=== PATIENT | male | born 1980 | race Caucasian/White ===

== ENCOUNTER 2022-08-06 15:25 | Emergency (ER) | payer BC, SELFPAY ==
[2022-08-06 15:36] VITALS: BP 144/80; PULSE 103; RESP 18; TEMP 39.2; O2SAT 97
--- NOTE | 2022-08-06 16:08 | ED.URI ---
HPI - URI/Sore Throat General Chief Complaint: Upper Respiratory Infection Stated Complaint: Headache,Body Aches Source: patient Mode of arrival: ambulatory History of Present Illness HPI Narrative: This is a 42-year-old male who presented to our urgent care with complaints of a cough with yellow sputum, headache, nausea vomiting and sore throat that started on Wednesday. Patient did have a temperature of 102.5? patient did refuse any Tylenol decreases fever. The patient denies SOB, CP, palpitation, extremity numbness, lightheadedness, dizziness, constipation, diarrhea, and chills. Related Data Allergies Allergy/AdvReac Type Severity Reaction Status Date / Time No Known Allergies Allergy Verified 08/06/22 15:40 Review of Systems Review of Systems: A 14 organ system Review of Systems was performed and pertinent positives included in the HPI, otherwise remaining ROS is negative. Exam Narrative: GENERAL: This is a well-nourished, well-developed patient, in no apparent distress. HEAD: normocephalic, atraumatic. EYES: PERRL. Sclera clear/white. Vision is grossly intact. EARS: External ears normal, auditory canals clear and without drainage, TMs normal without perforation. Hearing grossly intact. NOSE: External nose normal with no obvious nasal discharge, nares without redness, no rhinorrhea. THROAT: Mucous membranes moist, posterior pharynx clear. NECK: Neck supple, non-tender without lymphadenopathy, masses or thyromegaly. CARDIOVASCULAR: Regular rate and rhythm without murmurs, gallops, or rubs. RESPIRATORY: Clear to auscultation. Breath sounds equal bilaterally. No wheezes, rales, or rhonchi. GASTROINTESTINAL: Abdomen soft, non-tender, nondistended. Bowel sounds are active. No hepato-splenomegaly, or palpable masses. No guarding. SKIN: warm, intact with no suspicious lesions or rash, good texture and turgor. NEURO: awake, alert, and oriented to person, place and time. There were no obvious focal neurologic abnormalities. EXTREMITIES: Normal range of motion. No edema. No calf tenderness. Course Course Emergency Course: Patient will discharge home with Tessalon Perles, Flonase, and Zofran and guaifenesin instructed to use [id number] Tylenol for fever and cold and cough medication to relieve the symptoms Level of Care: Express Care Visit Vital Signs Vital signs: Vital Signs Temperature 102.5 F H 08/06/22 15:36 Pulse Rate 103 H 08/06/22 15:36 Respiratory Rate 18 08/06/22 15:36 Blood Pressure 144/80 H 08/06/22 15:36 Pulse Oximetry 97 08/06/22 15:36 Oxygen Delivery Room Air 08/06/22 15:36 Temperature 102.5 F H 08/06/22 15:36 Pulse Rate 103 H 08/06/22 15:36 Respiratory Rate 18 08/06/22 15:36 Blood Pressure 144/80 H 08/06/22 15:36 Pulse Oximetry 97 08/06/22 15:36 Oxygen Delivery Room Air 08/06/22 15:36 MDM - URI/Sore Throat Differential Diagnosis Differential diagnosis: Likely upper respiratory infection, sinusitis, viral infection and influenza Lab Data Labs: Lab Results 08/06/22 Range/Units 16:00 POC SARS CoV-2 Ag Negative (Negative) Discharge Plan Discharge Clinical Impression: Viral infection Patient Disposition: Home, Self-Care Condition: Stable Instructions: Antibiotic Form, Viral Syndrome (ED) Additional Instructions: Take prescribed medication as instructed When do I need to call the doctor? Fever or cough returns or gets worse Chest pain with deep breathing Confusion or sudden dizziness Very bad throwing up or throwing up that does not stop Trouble breathing Passing less urine You are not feeling better in 2 to 3 days or you are feeling worse Use [id number] Tylenol for fever WHEN TO SEEK ER EVALUATION/TREATMENT Severe/persistent shortness of breath or difficulty breathing Elevated, persistent fevers without resolution with fever-reducing medications Chest pain Extreme fatigue/lethargy Complications of pre-existing
== END 2022-08-06 16:10 | disposition home or self-care (01) ==
PROVIDERS: Emergency Provider Nurse Practitioner; PCP Nurse Practitioner Family
DX: B34.9 Viral infection, unspecified (principal); Z20.822 Contact with and (suspected) exposure to COVID-19
CPT/HCPCS: 87426; 99213; C9803; G0463

== ENCOUNTER 2024-09-25 13:36 | Emergency (ER) | payer OTHER, SELFPAY ==
[2024-09-25 13:45] VITALS: BP 155/101; PULSE 98; RESP 18; TEMP 36.6; O2SAT 98
--- OUTSIDE RECORDS SUMMARY | 2024-09-25 13:48 | XMS_ITS | Referral Summary ---
Author Organization [facility] [employer] Address [address] [place] [address] Care Team Providers Care Information Technology Security Manager Name Role Phone Unavailable Primary Care Provider Unavailabl e Source Comments [facility] [employer],non-owned Affiliates and Associated Physician Practices is amultiple site organization consisting of ambulatory clinics and hospital sitesin [place], [place], [place] and [place]. This disclosure is being madepursuant to the Care Everywhere program and may not contain all information available regarding this patient. Last updated 18.[facility] [employer] Allergies No known active allergies Medications Be aware that medications may not be up to date on this document. Always verify current medications with the patient. No known medications Social History Tobacco Use Types Packs/Day Years Used Date Smoking Tobacco: Every Day Smokeless Tobacco: Never Sex and Gender Information Value Date Recorded Sex Assigned at Not on file Gender Identity Not on file Sexual Orientation Not on file Last Filed Vital Signs Vital Sign Reading Time Taken Comments Blood Pressure 120/80 03/30/2018 9:06 AM CDT Pulse 82 03/30/2018 9:06 AM CDT Temperature 36.8 C (98.2 F) 03/30/2018 9:06 AM CDT Respiratory Rate 16 03/30/2018 9:06 AM CDT Oxygen Saturation 98% 03/30/2018 9:06 AM CDT Inhaled Oxygen Concentration - - Weight 117.9 kg (260 lb) 03/30/2018 9:06 AM CDT Height 172.7 cm (5' 8 ) 03/30/2018 9:06 AM CDT Body Mass Index 39.53 03/30/2018 9:06 AM CDT Plan of Treatment Not on file
--- OUTSIDE RECORDS SUMMARY | 2024-09-25 13:48 | XMS_ITS | Referral Summary ---
Author Organization [facility] [address] Address [address] [place] [id number] Care Team Providers Care Coordinator Of Evaluation Name Role Phone Tanya Vivas NP Primary Care Provider [phone] Encounters Date Type Department Care Team Description 08/31/2024 Telephone [facility] Medical [facility] Primary Care at [address] [address] Tanya Vivas NP R/S AWV with Tanya Vivas 08/15/2024 Orders Only [address] [address] Yuliya Branham MA Hematuria, unspecified type (Primary Dx) 08/14/2024 4:21 PM IMAGE SCIENTIST - 08/14/2024 11:59 PM IMAGE SCIENTIST Hospital Encounter [address] [address] Hematuria, unspecified type Discharge Disposition: Discharge to home or self care 08/14/2024 Orders Only [facility] Primary Care at [address] [address] Matty Colón MD 08/14/2024 1:30 PM IMAGE SCIENTIST Lab [facility] Outpatient Lab at [address] [address] Hyperlipidemia (Primary Dx); Hypertension; DELIA (obstructive sleep apnea) 08/01/2024 4:20 PM IMAGE SCIENTIST - 08/01/2024 11:59 PM IMAGE SCIENTIST Hospital Encounter [address] [id number] Hematuria, unspecified type Discharge Disposition: Discharge to home or self care 08/01/2024 4:00 PM IMAGE SCIENTIST Office Visit [facility] Primary Care at [address] [phone] Tanya Vivas NP Diverticulitis (Primary Dx); Hematuria, unspecified type 07/28/2024 8:57 PM IMAGE SCIENTIST - 07/29/2024 12:48 AM IMAGE SCIENTIST Emergency [facility] Emergency Department [address] [place] [address] Sammie Walls MD Armstrong, Rachel Elizabeth, MD Diverticulitis (Primary Dx); Hematuria, unspecified type Discharge Disposition: Discharge to home or self care 07/28/2024 Nurse Triage [facility] Primary Care at [address] [address] Tanya Vivas NP 07/06/2024 Telephone [facility] Primary Care at [address] [address] Seema Gonzalez MA Test Results (labs) 07/06/2024 Orders Only [facility] Primary Care at [address] [phone] Tanya Vivas NP Decreased renal function (Primary Dx) 07/05/2024 4:08 PM IMAGE SCIENTIST - 07/05/2024 11:59 PM IMAGE SCIENTIST Hospital Encounter [address] [address] Primary hypertension; Impaired fasting glucose Discharge Disposition: Discharge to home or self care 07/05/2024 4:15 PM IMAGE SCIENTIST Lab [facility] Outpatient Lab at [address] [address] Class 2 obesity in adult (Primary Dx); Hypertension 07/05/2024 4:00 PM IMAGE SCIENTIST Office Visit [facility] Primary Care at [address] [phone] Tayna Vivas NP Primary hypertension (Primary Dx); Mixed hyperlipidemia; Impaired fasting glucose from Last 3 Months Allergies No known active allergies Medications buPROPion SR (ZYBAN) 150 mg 12 hr tablet Take 1 tablet (150 mg total) by mouth 2 (two) times a day Active losartan (COZAAR) 100 mg tablet Take 1 tablet (100 mg total) by mouth daily 90 tablet 1 06/19/2024 Active fenofibrate (TRIGLIDE) 160 mg tablet Take 1 tablet (160 mg total) by mouth daily 90 tablet 1 06/19/2024 Active Saccharomyces boulardii (FLORASTOR) 250 mg capsule Take 2 capsules (500 mg total) by mouth 2 (two) times a day for 12 days 48 capsule 07/29/2024 Active Active Problems Problem Noted Date Diagnosed Date Hyperlipidemia 06/21/2023 Assessment & Plan (07/05/2024 4:09 PM IMAGE SCIENTIST): Updated labs ordered, continues Fenofibrate. Assessment & Plan (01/03/2024 8:21 AM CDT): Updated labs ordered, continues Fenofibrate. Assessment & Plan (06/21/2023 12:51 PM IMAGE SCIENTIST): Updated labs ordered, continues Fenofibrate. S/P laparoscopic appendectomy 09/07/2022 DELIA (obstructive sleep apnea) 09/07/2022 Assessment & Plan (06/21/2023 12:41 PM IMAGE SCIENTIST): Was unable to tolerate CPAP. Doing ok now with sleep. Migraines 09/07/2022 Assessment & Plan (06/21/2023 12:51 PM IMAGE SCIENTIST): Rarely getting migraines. Will monitor. Hypertension 09/07/2022 Assessment & Plan (07/05/2024 4:09 PM IMAGE SCIENTIST): BP stable overall. Continuing Losartan 100 mg daily. Updated labs ordered. Assessment & Plan (01/03/2024 8:20 AM CDT): BP stable overall. Continuing Losartan 100 mg daily. Assessment & Plan (06/21/2023 12:51 PM IMAGE SCIENTIST): BP ok in office, continuing Losartan 100 mg daily Updated labs ordered Class 2 obesity in adult 09/07/2022 Assessment & Plan (06/21/2023 12:52 PM IMAGE SCIENTIST): Healthy, low carbohydrate lifestyle and exercise for 150min/week recommended Appendicitis 09/06/2022 Immunizations Name Administration Dates Next Due DTP 06/30/1980, 9,1979,04/08 Influenza, Quadrivalent, Jessica l Culture-based MDCK, Preservative Free, Antibiotic Free, Intramuscular 05/30/2023,07/05/2022 Influenza, Unspecified 06/02/2024 MMR 03/21/1993,06/30/1980 OPV 12/26/1983, 0,1979,06/18,1979 Td, adsorbed 03/21/1993,06/30/1984 Social History Tobacco Use Types Packs/Day Years Used Date Smoking Tobacco: Every Day Cigarettes 0.5 15 Tobacco Cessation:Ready to Q uit: Not Asked; Counseling Given: Not Answered PHQ-2 Answer Date Recorded PHQ-2 Total Score (If total score is 3 or more points, staff should administer the PHQ-9) 0 08/01/2024 Personal Safety Answer Date Recorded Have you ever been in or are you currently in a harmful physical or emotional relationship or is someone making you feel afraid or unsafe? Denies 07/28/2024 Sex and Gender Information Value Date Recorded Sex Assigned at Not on file Legal Sex Male 10:45 PM IMAGE SCIENTIST Gender Identity Not on file Sexual Orientation Not on file Last Filed Vital Signs Vital Sign Reading Time Taken Comments Blood Pressure 124/80 08/01/2024 3:54 PM IMAGE SCIENTIST Pulse 87 08/01/2024 3:54 PM IMAGE SCIENTIST Temperature 36.5 C (97.7 F) 08/01/2024 3:54 PM IMAGE SCIENTIST Respiratory Rate 16 07/29/2024 12:30 AM IMAGE SCIENTIST Oxygen Saturation 99% 08/01/2024 3:54 PM IMAGE SCIENTIST Inhaled Oxygen Concentration - - Weight 112.9 kg (249 lb) 08/01/2024 3:54 PM IMAGE SCIENTIST Height 172.7 cm (5' 8 ) 08/01/2024 3:54 PM IMAGE SCIENTIST Body Mass Index 37.86 08/01/2024 3:54 PM IMAGE SCIENTIST Plan of Treatment Not on file Procedures Procedure Name Priority Date/Time Associated Diagnosis Comments URINALYSIS, MICROSCOPIC ONLY Routine 08/14/2024 9:15 PM IMAGE SCIENTIST Hematuria, unspecified type URINALYSIS AND REFLEX TO MICROSCOPIC AND CULTURE Routine 08/14/2024 9:15 PM IMAGE SCIENTIST Hematuria, unspecified type POCT URINALYSIS DIPSTICK Routine 08/01/2024 4:21 PM IMAGE SCIENTIST Hematuria, unspecified type URINE CULTURE Routine 08/01/2024 4:20 PM IMAGE SCIENTIST Hematuria, unspecified type CT ABDOMEN PELVIS WO CONTRAST ED 07/28/2024 10:31 PM IMAGE SCIENTIST URINALYSIS, MICROSCOPIC ONLY STAT 07/28/2024 7:15 PM IMAGE SCIENTIST URINALYSIS AND REFLEX TO MICROSCOPIC AND CULTURE STAT 07/28/2024 7:15 PM IMAGE SCIENTIST EGFR STAT 07/28/2024 5:58 PM IMAGE SCIENTIST DIFFERENTIAL AUTO STAT 07/28/2024 5:5 8 PM IMAGE SCIENTIST LIPASE STAT 07/28/2024 5:58 PM IMAGE SCIENTIST COMPREHENSIVE METABOLIC PANEL STAT 07/28/2024 5:58 PM IMAGE SCIENTIST CBC WITH AUTO DIFFERENTIAL STAT 07/28/2024 5:58 PM IMAGE SCIENTIST EGFR Routine 07/05/2024 4:08 PM IMAGE SCIENTIST Primary hypertension DIFFERENTIAL AUTO Routine 07/05/2024 4:0 8 PM IMAGE SCIENTIST Primary hypertension CBC WITH AUTO DIFFERENTIAL Routine 07/05/2024 4:08 PM IMAGE SCIENTIST Primary hypertension COMPREHENSIVE METABOLIC PANEL Routine 07/05/2024 4:08 PM IMAGE SCIENTIST Primary hypertension HEMOGLOBIN A1C Routine 07/05/2024 4:08 PM IMAGE SCIENTIST Impaired fasting glucose LIPID PANEL Routine 07/05/2024 4:08 PM IMAGE SCIENTIST Primary hypertension THYROID FUNCTION CASCADE Routine 07/05/2024 4:08 PM IMAGE SCIENTIST Primary hypertension HEPATITIS C ANTIBODY Routine 01/03/2024 8:29 AM CDT Encounter for hepatitis C screening test for low risk patient HM COLONOSCOPY Routine 01/30/2023 2:34 PM CDT from Last 3 Months or Most Recently Relevant to Health Maintenance Results * (ABNORMAL) Urinalysis reflex to microscopic and culture Urine, bladder (08/14/2024 9:15 PM IMAGE SCIENTIST) Color, ur Yellow Yellow Clarity, ur Clear Clear [facility] Specific gravity, ur 1.019 1.003 - 1.030 [facility] pH, urine 6.5 [facility] Comment: Interpretive Data U rine pH is affected by diet, medications, systemic acid-base disturbances, and renal tubular function. pH may affect urinary stone formation. For example, urine pH below 6.0 may help reduce the tendency for calcium phosphate stones and pH greater than 6.0 may reduce the tendency for uric acid stone formation. Source: [facility] Current Interpretive Data was last revised on 2017 Protein, ur ql Negative Negative [facility] Glucose, ur ql 1+(A) Negative [facility] Ketones, ur Negative Negative [facility] Bilirubin, ur Negative Negative [facility] Blood, ur Trace(A) Negative [facility] Urobilinogen, ur <2.0 <2.0 mg/dL [facility] Nitrite, ur Negative Negative [facility] Leukocyte esterase, ur Negative Negative [facility] UA reflex comment Reflex to microscopic UA will be performed. [facility] Urine, bladder 08/14/2024 9: 15 PM IMAGE SCIENTIST 08/15/2024 11:42 AM IMAGE SCIENTIST us Tanya Vivas NP LAB MICROBIOLOGY - GENERAL ORDER BRANDIE Final Result PROMISE MADDEN [address] Department [place] [address] * (ABNORMAL) Urinalysis, microscopic only (08/14/2024 9:15 PM IMAGE SCIENTIST) WBC, ur 0-5 0 - 5 /HPF RBC, ur 6-10(A) 0 - 2 /HPF [facility] Mucous, ur Present(A) [facility] Culture Reflex Comment Reflex conditions for urine culture (WBC >10) not met. [facility] Urine, bladder 08/14/2024 9: 15 PM IMAGE SCIENTIST 08/15/2024 11:42 AM IMAGE SCIENTIST us Tanya Vivas NP LAB URINE ORDERABLES Final Resul t Performing Organization Address [facility] Co de Phone Number PROMISE MADDEN [address] Department [place] [address] * (ABNORMAL) POCT urinalysis dipstick (08/01/2024 4:21 PM IMAGE SCIENTIST) Glucose, ur, POC Negative Negative MG/DL Bilirubin, ur, POC Negative Negative, Small, Moderate, Large Ketones, ur, POC Negative Negative Specific [place], POC 1.025 1.003 - 1.030 Blood, ur, POC Moderate(A) Negative pH, ur, POC 5.5 5.0 - 8.0 Protein, ur, POC Negative Negative Urobilinogen, urine, POC 0.2 0.2 - 1.0 mg/dL Nitrite, ur, POC Negative Negative Leukocytes, ur, POC Negative Negative Lot Number [id number] Urine 08/01/2024 4:21 PM IMAGE SCIENTIST us Tanya Vivas NP POINT OF CARE TEST ORDERABLES Fi nal Result * Urine culture Urine, bladder (08/01/2024 4:20 PM IMAGE SCIENTIST) Report Final Report: No growth Comment:Testing performed by : [facility], [address] [facility], [place]., [address] Urine, bladder 08/01/2024 4: 20 PM IMAGE SCIENTIST 08/01/2024 10:08 PM IMAGE SCIENTIST Narrative PROMISE MADDEN - 08/03/2024 7:55 AM IMAGE SCIENTIST Testing performed by [facility] Microbiology Laboratory ([phone]) us Tanya Vivas FLAKO LAB MICROBIOLOGY - GENERAL ORDER BRANDIE Final Result PROMISE MADDEN [address] Department [place] [address] * CT Abdomen Pelvis WO Contrast (07/28/2024 10:31 PM IMAGE SCIENTIST) Anatomical Region Laterality Modality Body N/A Computed Tomogra phy 07/29/2024 9:38 AM IMAGE SCIENTIST Impressions 07/29/2024 9:38 AM IMAGE SCIENTIST Acute, uncomplicated sigmoid diverticulitis. Electronically signed by: Guillermo Keith M.D. Narrative 07/29/2024 9:38 AM IMAGE SCIENTIST EXAMINATION: CT ABDOMEN PELVIS WO CONTRAST HISTORY: Flank pain. TECHNIQUE: Transaxial computed tomographic images of the abdomen and pelvis were obtained without intravenous contrast according to the standard protocol. COMPARISON: None available FINDINGS: The lung bases are clear. There is no pleural effusion. The heart size is normal. Hepatic and splenic size and contour is normal. There is no parenchymal organ abnormality on noncontrast imaging. Left renal cysts are present. There is no biliary or urinary tract dilatation. No focal urinary tract calculus is identified. The small and large bowel are nondilated. There is sigmoid diverticulosis with focal inflammation in the mid sigmoid colon consistent with diverticulitis. There is no extraluminal fluid collection or free air. There is no ascites. There is no acute osseous lesion. Procedure Note Guillermo Keith MD - 07/29/2024 EXAMINATION: CT ABDOMEN PELVIS WO CONTRAST HISTORY: Flank pain. TECHNIQUE: Transaxial computed tomographic images of the abdomen and pelvis were obtained without intravenous contrast according to the standard protocol. COMPARISON: None available FINDINGS: The lung bases are clear. There is no pleural effusion. The heart size is normal. Hepatic and splenic size and contour is normal. There is no parenchymal organ abnormality on noncontrast imaging. Left renal cysts are present. There is no biliary or urinary tract dilatation. No focal urinary tract calculus is identified. The small and large bowel are nondilated. There is sigmoid diverticulosis with focal inflammation in the mid sigmoid colon consistent with diverticulitis. There is no extraluminal fluid collection or free air. There is no ascites. There is no acute osseous lesion. IMPRESSION: Acute, uncomplicated sigmoid diverticulitis. Electronically signed by: Guillermo Keith M.D. Sammie Walls MD IMG CT PROCEDURES Final R esult * (ABNORMAL) Urinalysis reflex to microscopic and culture Urine (07/28/2024 7:15 PM IMAGE SCIENTIST) Color, ur Yellow Yellow Clarity, ur Clear Clear [facility] Specific gravity, ur >1.030(H) 1.003 - 1.030 [facility] pH, urine 6.0 [facility] Comment: Interpretive Data U rine pH is affected by diet, medications, systemic acid-base disturbances, and renal tubular function. pH may affect urinary stone formation. For example, urine pH below 6.0 may help reduce the tendency for calcium phosphate stones and pH greater than 6.0 may reduce the tendency for uric acid stone formation. Source: [employer] Current Interpretive Data was last revised on 2017 Protein, ur ql Trace Negative [facility] Glucose, ur ql 1+(A) Negative [facility] Ketones, ur Negative Negative [facility] Bilirubin, ur Negative Negative [facility] Blood, ur 2+(A) Negative [facility] Urobilinogen, ur 4.0(A) <2.0 mg/dL [facility] Nitrite, ur Negative Negative [facility] Leukocyte esterase, ur Negative Negative [facility] UA reflex comment Reflex to microscopic UA will be performed. [facility] Urine 07/28/2024 7:15 PM IMAGE SCIENTIST 07/28/2024 7:21 PM IMAGE SCIENTIST Sammie Walls MD LAB MICROBIOLOGY - GENERA L ORDERABLES Final Result Performing Organization Address [facility] Co de Phone Number [facility] [address] [facility] [place] [address] * (ABNORMAL) Urinalysis, microscopic only (07/28/2024 7:15 PM IMAGE SCIENTIST) WBC, ur 0-5 0 - 5 /HPF RBC, ur 6-10(A) 0 - 2 /HPF [facility] Epithelial cells, squamous, ur 1-5 0 - 5 /HPF [facility] Mucous, ur Present(A) [facility] Culture Reflex Comment Reflex conditions for urine culture (WBC >10) not met. [facility] Urine 07/28/2024 7:15 PM IMAGE SCIENTIST 07/28/2024 7:21 PM IMAGE SCIENTIST Sammie Walls MD LAB URINE ORDERABLES Katia l Result Performing Organization Address [facility] Co de Phone Number PROMISE [facility] [address] Department [place] [address] * eGFR (07/28/2024 5:58 PM IMAGE SCIENTIST) eGFR 74 >=60 mL/min/1. 73 m2 Comment: Interpretive Data Reference Interval Normal >/= 90 mL/min/1.73m2 Mildly decreased* 60 - 89 mL/min/1.73m2 Mildly to moderately decreased 45 - 59 mL/min/1.73m2 Moderately to severely decreased 30 - 44 mL/min/1.73m2 Severely decreased 15 - 29 mL/min/1.73m2 Kidney Failure < 15 mL/min/1.73m2 *Relative to young adult level Estimated glomerular filtration rate is determined by the 2020 CKD-EPI equation recommended by the National Kidney Foundation (A Unifying Approach to GFR Estimation: Recommendations of the NKF-ASK Task Force on Reassessing the Inclusion of Race in Diagnosing Kidney Disease, JASN 202). The CKD-EPI equation should not be used for patients with unstable renal function and has not been validated in children and those over 70. Current interpretive data was last reviewed 2021. Blood 07/28/2024 5:58 PM IMAGE SCIENTIST 07/28/2024 6:02 PM IMAGE SCIENTIST Sammie Walls MD LAB BLOOD ORDERABLES Katia tafoya Result [facility] [address] [facility]. Department [place] [address] * Differential, auto (07/28/2024 5:58 PM IMAGE SCIENTIST) Neutrophil abs 4.5 1.5 - 6.5 K/cumm Imm gran abs 0.0 0.0 - 0.1 K/cumm [facility] Lymphocyte abs 1.5 0.8 - 3.3 K/cumm [facility] Monocyte abs 0.5 0.2 - 0.8 K/cumm [facility] Eosinophil abs 0.2 0.0 - 0.5 K/cumm [facility] Basophil abs 0.1 0.0 - 0.1 K/cumm [facility] Neutrophil pct 66.1 % [facility] Comment: Interpretive Data Percent cell count reference ranges are not reported, since discordance with absolute values may lead to misinterpretation of CBC data. Current Interpretive Data was last revised on 2017. Imm gran pct 0.3 % [facility] Comment: Interpretive Data Percent cell count reference ranges are not reported, since discordance with absolute values may lead to misinterpretation of CBC data. Current Interpretive Data was last revised on 2017. Lymphocyte pct 22.7 % [facility] Comment: Interpretive Data Percent cell count reference ranges are not reported, since discordance with absolute values may lead to misinterpretation of CBC data. Current Interpretive Data was last revised on 2017. Monocyte pct 7.4 % [facility] Comment: Interpretive Data Percent cell count reference ranges are not reported, since discordance with absolute values may lead to misinterpretation of CBC data. Current Interpretive Data was last revised on 2017. Eosinophil pct 2.8 % [facility] Comment: Interpretive Data Percent cell count reference ranges are not reported, since discordance with absolute values may lead to misinterpretation of CBC data. Current Interpretive Data was last revised on 2017. Basophil pct 0.7 % [facility] Comment: Interpretive Data Percent cell count reference ranges are not reported, since discordance with absolute values may lead to misinterpretation of CBC data. Current Interpretive Data was last revised on 2017. Blood 07/28/2024 5:58 PM IMAGE SCIENTIST 07/28/2024 6:02 PM IMAGE SCIENTIST Sammie Walls MD LAB BLOOD ORDERABLES Katia tafoya Result [facility] [address] [facility]. Department [place] [address] * (ABNORMAL) CBC with auto differential (07/28/2024 5:58 PM IMAGE SCIENTIST) WBC 6.8 3.8 - 9.9 K/cumm Hgb 14.1 13.0 - 17.5 g/dL [facility] W Hct 41.7 38.9 - 50.3 % [facility] W Plt 347 150 - 400 K/cumm [facility] MPV 8.4(L) 9.1 - 12.3 fL [facility] RBC 4.60 4.30 - 5.80 M/cumm [facility] W MCV 90.7 81.3 - 96.4 fL [facility] MCH 30.7 27.1 - 33.3 pg [facility] MCHC 33.8 32.3 - 35.7 g/dL [facility] RDW CV 12.1 11.1 - 14.9 % [facility] W RDW SD 40.2 35.7 - 48.1 fL [facility] NRBC abs 0.00 0.00 - 0.01 K/cumm [facility] Blood (Blood, Venous) 07/28/2024 5:58 PM IMAGE SCIENTIST 07/28/2024 6:02 PM IMAGE SCIENTIST Sammie Walls MD LAB BLOOD ORDERABLES Katia l Result Performing Organization Address City/[facility]/ZIP Co de Phone Number PROMISE [facility]ARDNER[facility] [address] [facility]. [facility] [place] [address] * Lipase (07/28/2024 5:58 PM IMAGE SCIENTIST) Pathologist [facility] Lipase 21 10 - 99 Units/L Blood (Blood, Venous) 07/28/2024 5:58 PM IMAGE SCIENTIST 07/28/2024 6:02 PM IMAGE SCIENTIST Sammie Walls MD LAB BLOOD ORDERABLES Katia l Result Performing Organization Address [facility] de Phone Number [facility] [address] [facility]. [place] [address] * Comprehensive metabolic panel (07/28/2024 5:58 PM IMAGE SCIENTIST) Pathologist [facility] Sodium 138 135 - 145 mmol/L Potassium, pl 3.6 3.3 - 4.9 mmol/L [facility] Chloride 102 97 - 110 mmol/L [facility] CO2 25 22 - 32 mmol/L [facility] Anion gap 11 2 - 15 mmol/L [facility] BUN 18 6 - 25 mg/dL [facility] Creatinine 1.23 0.80 - 1.30 mg/dL [facility] Glucose 101 70 - 199 mg/dL [facility] Comment: Interpretive Data Fasting glucose >/= 126 mg/dl is diagnostic for diabetes. Fasting is defined as no caloric intake for at least 8 hours. Fasting glucose between 100 mg/dl to 125 mg/dl is diagnostic of prediabetes. In a patient with classic symptoms of hyperglycemia or hyperglycemic crisis, a random glucose >/= 200 mg/dl is diagnostic for diabetes. In the absence of unequivocal hyperglycemia, results should be confirmed by repeat testing. The classification and Diagnosis of Diabetes Diabetes Care 2021; 46: S19-S40. Current interpretive data was last revised 2022. Calcium 9.4 8.5 - 10.3 mg/dL [facility] Bilirubin, total 0.4 0.1 - 1.2 mg/dL [facility] Protein, pl 7.2 6.5 - 8.5 g/dL [facility] Albumin 3.9 3.5 - 5.0 g/dL [facility] Alk phos 46 40 - 130 Units/L [facility] ALT 25 7 - 55 Units/L [facility] AST 20 10 - 50 Units/L [facility] Blood 07/28/2024 5:58 PM IMAGE SCIENTIST 07/28/2024 6:02 PM IMAGE SCIENTIST us Sammie Walls MD LAB BLOOD ORDERABLES Katia l Result PROMISE PRATHER [address] [facility]. Department [place] [address] * (ABNORMAL) eGFR (07/05/2024 4:08 PM IMAGE SCIENTIST) eGFR 43(L) >=60 mL/min/1. 73 m2 Comment: Interpretive Data Reference Interval Normal >/= 90 mL/min/1.73m2 Mildly decreased* 60 - 89 mL/min/1.73m2 Mildly to moderately decreased 45 - 59 mL/min/1.73m2 Moderately to severely decreased 30 - 44 mL/min/1.73m2 Severely decreased 15 - 29 mL/min/1.73m2 Kidney Failure < 15 mL/min/1.73m2 *Relative to young adult level Estimated glomerular filtration rate is determined by the 2020 CKD-EPI equation recommended by the National Kidney Foundation (A Unifying Approach to GFR Estimation: Recommendations of the NKF-ASK Task Force on Reassessing the Inclusion of Race in Diagnosing Kidney Disease, JASN 2020). The CKD-EPI equation should not be used for patients with unstable renal function and has not been validated in children and those over 70. Current interpretive data was last reviewed 2021. Blood 07/05/2024 4:08 PM IMAGE SCIENTIST 07/05/2024 7:32 PM IMAGE SCIENTIST us Tanya Vivas NP LAB BLOOD ORDERABLES Final Resul t [facility] [address] Department [place] [address] * (ABNORMAL) Differential, auto (07/05/2024 4:08 PM IMAGE SCIENTIST) Neutrophil abs 5.6 1.5 - 6.5 K/cumm Imm gran abs 0.0 0.0 - 0.1 K/cumm [facility] Lymphocyte abs 1.9 0.8 - 3.3 K/cumm [facility] Monocyte abs 0.9(H) 0.2 - 0.8 K/cumm [facility] Eosinophil abs 0.2 0.0 - 0.5 K/cumm [facility] Basophil abs 0.1 0.0 - 0.1 K/cumm [facility] Neutrophil pct 64.0 % [facility] Comment: Interpretive Data Percent cell count reference ranges are not reported, since discordance with absolute values may lead to misinterpretation of CBC data. Current Interpretive Data was last revised on 2017. Imm gran pct 0.3 % [facility] Comment: Interpretive Data Percent cell count reference ranges are not reported, since discordance with absolute values may lead to misinterpretation of CBC data. Current Interpretive Data was last revised on 2017. Lymphocyte pct 22.1 % [facility] Comment: Interpretive Data Percent cell count reference ranges are not reported, since discordance with absolute values may lead to misinterpretation of CBC data. Current Interpretive Data was last revised on 2017. Monocyte pct 10.2 % [facility] Comment: Interpretive Data Percent cell count reference ranges are not reported, since discordance with absolute values may lead to misinterpretation of CBC data. Current Interpretive Data was last revised on 2017. Eosinophil pct 2.5 % [facility] Comment: Interpretive Data Percent cell count reference ranges are not reported, since discordance with absolute values may lead to misinterpretation of CBC data. Current Interpretive Data was last revised on 2017. Basophil pct 0.9 % [facility] Comment: Interpretive Data Percent cell count reference ranges are not reported, since discordance with absolute values may lead to misinterpretation of CBC data. Current Interpretive Data was last revised on 2017. Blood 07/05/2024 4:08 PM IMAGE SCIENTIST 07/05/2024 7:30 PM IMAGE SCIENTIST Tanya Vivas MEDIA BUYER LAB BLOOD ORDERABLES Final Resul t Performing Organization Address City/[facility]/ZIP Co de Phone Number PROMISE MADDEN [phone] [facility] [place] [address] * Thyroid Function Isabella (07/05/2024 4:08 PM IMAGE SCIENTIST) TSH 1.13 0.30 - 4.20 mcIUnit/mL Blood 07/05/2024 4:08 PM IMAGE SCIENTIST 07/05/2024 7:30 PM IMAGE SCIENTIST Tanya Vivas MEDIA BUYER LAB BLOOD ORDERABLES Final Resul t Performing Organization Address [facility] de Phone Number PROMISE MADDEN [phone] [place] [address] * (ABNORMAL) CBC with auto differential (07/05/2024 4:08 PM IMAGE SCIENTIST) WBC 8.8 3.8 - 9.9 K/cumm Hgb 13.6 13.0 - 17.5 g/dL [facility] Hct 42.2 38.9 - 50.3 % [facility] Plt 378 150 - 400 K/cumm [facility] MPV 9.0(L) 9.1 - 12.3 fL [facility] RBC 4.52 4.30 - 5.80 M/cumm [facility] MCV 93.4 81.3 - 96.4 fL [facility] MCH 30.1 27.1 - 33.3 pg [facility] MCHC 32.2(L) 32.3 - 35.7 g/dL [facility] RDW CV 12.8 11.1 - 14.9 % [facility] RDW SD 43.8 35.7 - 48.1 fL [facility] NRBC abs 0.00 0.00 - 0.01 K/cumm [facility] Blood 07/05/2024 4:08 PM IMAGE SCIENTIST 07/05/2024 7:30 PM IMAGE SCIENTIST us Tanya Vivas MEDIA BUYER LAB BLOOD ORDERABLES Final Resul t Performing Organization Address [facility] de Phone Number PROMISE MADDEN [phone] [facility] [place] [address] * (ABNORMAL) Hemoglobin A1c (07/05/2024 4:08 PM IMAGE SCIENTIST) Hgb A1C 5.7(H) 4.0 - 5.6 % Estimated Average Glucose 117 mg/dL PROMISE MADDEN Comment: The ADA recommends reporting an estimated Average Glucose (eAG) with all Hemoglobin A1c results using the equation derived from a study of 507 normal and diabetic adults. Minority populations were underrepresented and children were not included. (Diabetes Care 31:8216-2637, 2008). The eAG is not equivalent to a fasting glucose. Blood 07/05/2024 4:08 PM IMAGE SCIENTIST 07/05/2024 7:30 PM IMAGE SCIENTIST us Tanya Vivas NP LAB BLOOD ORDERABLES Final Resul t Performing Organization Address [facility] de Phone Number PROMISE MADDEN [phone] [employer] [place] [address] * (ABNORMAL) Lipid panel (07/05/2024 4:08 PM IMAGE SCIENTIST) Cholesterol 162 30 - 199 mg/dL Comment: Interpretive Data Ages < or = 19 years Acceptable: <170 mg/dL Borderline high: 170-199 mg/dL High: >or= 200 mg/dL Ages > or = 20 years Desirable: <200 mg/dL Borderline high: 200-239 mg/dL High: >or= 240 mg/dL Literature References: 1. Expert Panel on Integrated Guidelines for Cardiovascular Health and Risk Reduction in Children and Adolescents. Pediatrics 2011;128:S213 2. NCEP Expert Panel. Circulation 2004;110:227 Current Interpretive Data was last revised on 2018. Triglycerides 125 <=149 mg/dL PROMISE MADDEN Comment: Interpretive Data Ages < or = 9 years Acceptable: <75 mg/dL Borderline high: 75-99 mg/dL High: >or= 100 mg/dL Ages 10 to 20 years Acceptable: <90 mg/dL Borderline high: 90-129 mg/dL High: >or= 130 mg/dL Ages > or = 20 years Desirable: <150 mg/dL Borderline high: 150-199 mg/dL High: 200-499 mg/dL Very high: >or= 499 mg/dL Literature References: 1. Expert Panel on Integrated Guidelines for Cardiovascular Health and Risk Reduction in Children and Adolescents. Pediatrics 2011;128:S213 2. NCEP Expert Panel. Circulation 2004;110:227 Current Interpretive Data was last revised on 2018. HDL 38(L) >=40 mg/dL PROMISE Comment: Interpretive Data Ages < or = 19 years Acceptable: >45 mg/dL Borderline low: 40-45 mg/dL Low: <40 mg/dL Ages > or = 20 years Desirable: >or= 60 mg/dL Low: <40 mg/dL Literature References: 1. Expert Panel on Integrated Guidelines for Cardiovascular Health and Risk Reduction in Children and Adolescents. Pediatrics 2011;128:S213 2. NCEP Expert Panel. Circulation 2004;110:227 Current Interpretive Data was last revised on 2018. LDL, calculated 101 <=129 mg/dL PROMISE Comment: Interpretive Data Ages < or = 19 years Acceptable: <110 mg/dL Borderline high: 110-129 mg/dL High: >or= 130 mg/dL Ages > or = 20 years Optimal: <100 mg/dL Near optimal: 100-129 mg/dL Borderline high: 130-159 mg/dL High: >160 mg/dL Calculated using the Drew LDL-C estimating equation. This equation was implemented on 2024. Prior to this date LDL-C was estimated using the Friedewald equation. Literature References: 1. Expert Panel on Integrated Guidelines for Cardiovascular Health and Risk Reduction in Children and Adolescents. Pediatrics 2011;128:S213 2. NCEP Expert Panel. Circulation 2004;110:227 3. Drew Gilliam al. AFSANEH Cardiol. 2020 December 14;5(5):540-548. doi: 10.1001/jamacardio.2020.0013 Current Interpretive Data was last revised on 2024. Non-HDL Cholesterol 124 mg/dL PROMISE Comment: Interpretive Data Ages < or = 19 years Acceptable: <120 mg/dL Borderline high: 120-144 mg/dL High: >145 mg/dL Ages > or = 20 years When triglycerides are >200 mg/dL, Non-HDL cholesterol is a secondary target of therapy with treatment goals that are 30 mg/dL greater than the LDL cholesterol target. Literature References: 1. Expert Panel on Integrated Guidelines for Cardiovascular Health and Risk Reduction in Children and Adolescents. Pediatrics 2011;128:S213 2. NCEP Expert Panel. Circulation 2004;110:227 Current Interpretive Data was last revised on 2018. Chol/HDL ratio 4 [facility] Blood 07/05/2024 4:08 PM IMAGE SCIENTIST 07/05/2024 7:30 PM IMAGE SCIENTIST us Tanya Vivas NP LAB BLOOD ORDERABLES Final Resul t [facility] [id number] [place] [address] * (ABNORMAL) Comprehensive metabolic panel (07/05/2024 4:08 PM IMAGE SCIENTIST) Sodium 138 135 - 145 mmol/L Potassium, pl 5.1(H) 3.3 - 4.9 mmol/L [facility] Chloride 102 97 - 110 mmol/L [facility] CO2 24 22 - 32 mmol/L [facility] Anion gap 12 2 - 15 mmol/L [facility] BUN 34(H) 6 - 25 mg/dL [facility] Creatinine 1.94(H) 0.80 - 1.30 mg/dL [facility] Glucose 85 70 - 199 mg/dL [facility] Comment: Interpretive Data Fasting glucose >/= 126 mg/dl is diagnostic for diabetes. Fasting is defined as no caloric intake for at least 8 hours. Fasting glucose between 100 mg/dl to 125 mg/dl is diagnostic of prediabetes. In a patient with classic symptoms of hyperglycemia or hyperglycemic crisis, a random glucose >/= 200 mg/dl is diagnostic for diabetes. In the absence of unequivocal hyperglycemia, results should be confirmed by repeat testing. The classification and Diagnosis of Diabetes Diabetes Care 202; 46: S19-S40. Current interpretive data was last revised 2022. Calcium 9.6 8.5 - 10.3 mg/dL [facility] Bilirubin, total 0.5 0.1 - 1.2 mg/dL [facility] Protein, pl 7.5 6.5 - 8.5 g/dL [facility] Albumin 4.3 3.5 - 5.0 g/dL [facility] Alk phos 43 40 - 130 Units/L [facility] ALT 21 7 - 55 Units/L [facility] AST 24 10 - 50 Units/L [facility] Blood 07/05/2024 4:08 PM IMAGE SCIENTIST 07/05/2024 7:30 PM IMAGE SCIENTIST Tanya Vivas NP LAB BLOOD ORDERABLES Final Resul t Performing Organization Address [facility] Co de Phone Number PROMISE MADDEN [phone] [place] [address] * Hepatitis C antibody Blood (01/03/2024 8:29 AM CDT) Hep C Ab Nonreactive Nonreactive Comment: Interpretive Data Nonreactive: Antibodies to HCV not detected. Does NOT exclude the possibility of recent exposure to HCV. Equivocal: Equivocal for HCV antibodies. Supplemental molecular testing will be automatically performed to determine infection status in accordance with current CDC screening recommendations. Reactive: Positive for HCV antibodies. This may represent current or past HCV infection. Supplemental molecular testing will be automatically performed to determine current infection status in accordance with current CDC screening recommendations. Interpretive data was last revised on 2019. Blood 01/03/2024 8:29 AM CDT 01/03/2024 6:43 PM CDT us Tanya Vivas NP LAB MICROBIOLOGY - GENERAL ORDER BRANDIE Final Result Performing Organization Address City/[facility]/ZIP Co de Phone Number PROMISE MADDEN [phone] [place], [place] [id number] * HM COLONOSCOPY (01/30/2023 2:34 PM CDT) Matty Colón MD HEALTH MAINTENANCE Final Resu lt from Last 3 Months or Most Recently Relevant to Health Maintenance Insurance [facility] CHOICE PLUS [facility] CHOICE PLUS Care Teams Coordinator Of Evaluation Relationship Specialty Start Date End Date Tanya Vivas NP [address] [address] PCP - General Family Medicine 06/21/23
--- OUTSIDE RECORDS SUMMARY | 2024-09-25 13:48 | XMS_ITS | Clinical Summary ---
Author Organization [facility] [employer] Address [address] [place] [address] Care Team Providers Care Informatics Analyst Name Role Phone Unavailable Primary Care Provider Unavailabl e Source Comments [facility] [employer],non-owned Affiliates and Associated Physician Practices is amultiple site organization consisting of ambulatory clinics and hospital sitesin [place], [place], [place] and [place]. This disclosure is being madepursuant to the Care Everywhere program and may not contain all information available regarding this patient. Last updated 18.[facility] [employer] Allergies No known active allergies Medications Be aware that medications may not be up to date on this document. Always verify current medications with the patient. No known medications Family History Medical History Relation Name Comments Diabetes - Type 2 Father Hypertension Father Relation Name Status Comments Father Social History Tobacco Use Types Packs/Day Years [...] 03/30/2018 9:06 AM CDT Plan of Treatment Health Maintenance Due Date Last Done Comments COLOGMY (AGES 45-75) - COL ON CA SCREENING 1979 COLON MONITORING 1979 COLONOSCOPY - COLON CA SCREENING 1979 CT COLONOGRAPHY - COLON CA SCREENING 1979 Colorectal Cancer Screening 1979 FIT - COLON CA SCREENING 1979 FLEX SIG - COLON CA SCREENING 1979 LIPID TESTING 1979 HIV SCREENING 1994 HEPATITIS C SCREENING 02/06/1997 DTAP/TDAP/TD VACCINES (1 - Tdap) 1998 HEPATITIS B VACCINE (1 of 3 - 19+ 3-dose series) 1998 PNEUMOCOCCAL VACCINE (1 of 2 - PCV) 1998 COVID-19 VACCINE (2023-2 5 season) 2024 INFLUENZA VACCINE (#1) 2024 DEPRESSION SCREENING 08/16/2024 ZOSTER VACCINE (1 of 2) 2029 HIB VACCINE Aged Out No longer eligi ble based on patient's age to complete this topic HPV VACCINE Aged Out No longer eligi ble based on patient's age to complete this topic MENINGOCOCCAL (Group B) VACCINE Aged Out No longer eligible based on patient's age to complete this topic MENINGOCOCCAL VACCINE Aged Out No michaela shawanda eligible based on patient's age to complete this topic
--- OUTSIDE RECORDS SUMMARY | 2024-09-25 13:48 | XMS_ITS | Clinical Summary ---
Author Organization [facility] Address [address] [place] [address] Care Team Providers Care Game Room Attendant Name Role Phone Isabel Ward [facility] Primary Care Provider [phone] Allergies No known active allergies Medications MELATONIN OR Take 10 mg by mouth nightly at bedtime. Gummies. Active cetirizine (ZYRTEC) 10 MG tablet Take 10 mg by mouth daily as needed for Allergies. Active diphenhydrAMINE HCl, Sleep, (ZZZQUIL) 25 MG Cap Take 25 mg by mouth nightly at bedtime. Active acetaminophen (TYLENOL) 325 MG tablet Take 2 tablets (650 mg total) by mouth every 4 (four) hours as needed for Pain. 30 tablet 09/07/2022 Active HYDROcodone-john taminophen (NORCO) 5-325 MG tabletIndicatio ns:Acute Pain < 7 Day Supply Take 1-2 tablets by mouth every 6 (six) hours as needed for Pain. Indications: Acute Pain < 7 Day Supply 15 tablet 09/07/2022 Active Active Problems Problem Noted Date Diagnosed Date Hypertension 09/07/2022 DELIA (obstructive sleep apnea) 09/07/2022 Migraines 09/07/2022 Class 2 obesity in adult 09/07/2022 S/P laparoscopic appendectomy 09/07/2022 Appendicitis 09/06/2022 Family History Medical History Relation Comments Alcohol Abuse Father Diabetes Father Hypertension Father Dementia Mother Diabetes Paternal Grandfather Relation Status Comments Father Mother Paternal Grandfather Social History Tobacco Use Types Packs/Day Years Used Date Smoking Tobacco: Every Day Cigarettes 0.5 10 Smokeless Tobacco: Never Tobacco Cessation:Ready to Q uit: Not Asked; Counseling Given: Not Answered Alcohol Use Standard Drinks/Week Comments Not Currently 0 (1 standard drink = 0.6 oz pur e alcohol) Sex and Gender Information Value Date Recorded Sex Assigned at Male 09/06/2022 11:18 PM [facility]ATE [facility] Legal Sex Male 7:04 PM CDT Gender Identity Male 09/06/2022 11:18 PM KARATE [employer]ACK [facility]T Sexual Orientation Straight 09/06/2022 11 :18 PM KARATE BLACK BELT Last Filed Vital Signs Vital Sign Reading Time Taken Comments Blood Pressure 124/85 09/07/2022 11:27 AM KARATE BLACK BELT Pulse 75 09/07/2022 11:27 AM KARATE BLACK [employer]T Temperature 36.8 C (98.2 F) 09/07/2022 11:27 AM KARATE BLACK BELT Respiratory Rate 20 09/07/2022 8:00 AM KARATE BLACK BELT Oxygen Saturation 95% 09/07/2022 11:27 AM KARATE BLACK BELT Inhaled Oxygen Concentration - - Weight 108.9 kg (240 lb) 09/06/2022 5:29 PM KARATE BLACK BELT Height 172.7 cm (5' 8 ) 09/06/2022 5:29 PM KARATE BLACK BELT Body Mass Index 36.49 09/06/2022 5:29 PM KARATE BLACK BELT Plan of Treatment Health Maintenance Due Date Last Done Comments Colorectal Cancer Screening Colonoscopy (10 Years) 1979 Annual Physical 1982 Pneumococcal Vaccine: Pediatrics (0 to 5 Years) and At-Risk Patients (6 to 64 Years) (1 of 2 - PCV) 1985 DTaP, Tdap and Td Vaccines (6 - Tdap) 03/22/1993 03/21/1993, 06/30/1984, 06/30/1980, Additional history exists Hepatitis C 1997 Hepatitis B Vaccines (1 of 3 - 19+ 3-dose series) 1998 COVID-19 Vaccine ( season) 2024 07/05/2022, 06/07/2021, 09/28/2020, Additional history exists Influenza Adult (#1) 2024 07/05/2022 HPV Vaccines Aged Out No longer eligi ble based on patient's age to complete this topic Meningococcal B Vaccine Aged Out No l onger eligible based on patient's age to complete this topic Meningococcal Vaccine Aged Out No michaela shawanda eligible based on patient's age to complete this topic RSV Immunizations Under 20 Months Aged Out No longer eligible based on patient's age to complete this topic Insurance [facility] Advance Directives * Full Code (Latest Code Status on File) Date Activated Date Inactivated Comments 09/06/2022 10:30 PM 09/07/2022 4:13 PM * Full Code Date Activated Date Inactivated Comments 09/06/2022 8:44 PM 09/06/2022 10:30 PM Care Teams Game Room Attendant Relationship Specialty Start Date End Date Isabel Ward, [employer]- [address] [place] [address] PCP - General NURSE PRACTITIONER 09/06/22
--- OUTSIDE RECORDS SUMMARY | 2024-09-25 13:48 | XMS_ITS | Clinical Summary ---
Author Organization [facility] [place], [place] [address] Address [address] [place] [id number] Care Team Providers Care Insurance Loss Assessor Name Role Phone Tanya Vivas NP Primary Care Provider [phone] Allergies No known active allergies Medications buPROPion [...] 06/21/2023 Assessment & Plan (07/05/2024 4:09 PM COMMISSIONING SPECIALIST): Updated labs ordered, continues Fenofibrate. Assessment & Plan (01/03/2024 8:21 AM CDT): Updated labs ordered, continues Fenofibrate. Assessment & Plan (06/21/2023 12:51 PM COMMISSIONING SPECIALIST): Updated labs ordered, continues Fenofibrate. S/P laparoscopic appendectomy 09/07/2022 DELIA (obstructive sleep apnea) 09/07/2022 Assessment & Plan (06/21/2023 12:41 PM COMMISSIONING SPECIALIST): Was unable to tolerate CPAP. Doing ok now with sleep. Migraines 09/07/2022 Assessment & Plan (06/21/2023 12:51 PM COMMISSIONING SPECIALIST): Rarely getting migraines. Will monitor. Hypertension 09/07/2022 Assessment & Plan (07/05/2024 4:09 PM COMMISSIONING SPECIALIST): BP stable overall. Continuing Losartan 100 mg daily. Updated labs ordered. Assessment & Plan (01/03/2024 8:20 AM CDT): BP stable overall. Continuing Losartan 100 mg daily. Assessment & Plan (06/21/2023 12:51 PM COMMISSIONING SPECIALIST): BP ok in office, continuing Losartan 100 mg daily Updated labs ordered Class 2 obesity in adult 09/07/2022 Assessment & Plan (06/21/2023 12:52 PM COMMISSIONING SPECIALIST): Healthy, low carbohydrate lifestyle and exercise for 150min/week recommended Appendicitis 09/06/2022 Encounters Date Type Department Care Team Description 08/31/2024 Telephone [facility] at [address] [phone] Tanya Vivas NP R/S AWV with Tanya Vivas 08/15/2024 Orders Only [address] [address] Yuliya Branham MA Hematuria, unspecified type (Primary Dx) 08/14/2024 4:21 PM COMMISSIONING SPECIALIST - 08/14/2024 11:59 PM COMMISSIONING SPECIALIST Hospital Encounter [address] [address] Hematuria, unspecified type Discharge Disposition: Discharge to home or self care 08/14/2024 1:30 PM COMMISSIONING SPECIALIST Lab [facility] at [address] [phone] Hyperlipidemia (Primary Dx); Hypertension; DELIA (obstructive sleep apnea) 08/14/2024 Orders Only [facility] at [address] [phone] Matty Colón MD 08/01/2024 4:20 PM COMMISSIONING SPECIALIST - 08/01/2024 11:59 PM COMMISSIONING SPECIALIST Hospital Encounter [address] [address] Hematuria, unspecified type Discharge Disposition: Discharge to home or self care 08/01/2024 4:00 PM COMMISSIONING SPECIALIST Office Visit [facility] at [address] [phone] Tanya Vivas NP Diverticulitis (Primary Dx); Hematuria, unspecified type 07/28/2024 8:57 PM COMMISSIONING SPECIALIST - 07/29/2024 12:48 AM COMMISSIONING SPECIALIST Emergency [facility] Emergency Department [id number] [place] [address] [place] [address] Sammie Walls MD ArmstrongAmanda MD Diverticulitis (Primary Dx); Hematuria, unspecified type Discharge Disposition: Discharge to home or self care 07/28/2024 Nurse Triage [facility] at [address] [phone] Tanya Vivas NP 07/06/2024 Telephone [facility] at [address] [phone] Seema Gonzalez MA Test Results (labs) 07/06/2024 Orders Only [facility] at [address] [phone] Tanya Vivas NP Decreased renal function (Primary Dx) 07/05/2024 4:15 PM COMMISSIONING SPECIALIST Lab [facility] at [address] [phone] Class 2 obesity in adult (Primary Dx); Hypertension 07/05/2024 4:08 PM COMMISSIONING SPECIALIST - 07/05/2024 11:59 PM COMMISSIONING SPECIALIST Hospital Encounter [address] [address] Primary hypertension; Impaired fasting glucose Discharge Disposition: Discharge to home or self care 07/05/2024 4:00 PM COMMISSIONING SPECIALIST Office Visit [facility] Primary Care at [address] [phone] Tanya Vivas NP Primary hypertension (Primary Dx); Mixed hyperlipidemia; Impaired fasting glucose from Last 3 Months Immunizations Name Administration Dates Next Due DTP 06/30/1980, 9,1979,04/08 Influenza, Quadrivalent, Jessica l Culture-based MDCK, Preservative Free, Antibiotic Free, Intramuscular 05/30/2023,07/05/2022 Influenza, Unspecified 06/02/2024 MMR 03/21/1993,06/30/1980 OPV 12/26/1983, 0,1979,06/18,1979 Td, adsorbed 03/21/1993,06/30/1984 Surgical History Surgery Date Site/Laterality Comments APPENDECTOMY Medical History Medical History Date Comments Hyperlipidemia Hypertension Sleep difficulties Migraine Depression Sleep apnea Family History Medical History Relation Name Comments Alcohol abuse Father Sincere Diabetes Father Sincere Hyperlipidemia Father Sincere Hypertension Father Sincere Cancer Father's Brother 1 Martin COPD Father's Brother 2 Uncle Martin Depression Maternal Grandmother Grandma Mental illness Maternal Grandmother Grandma Depression Mother Deandre Alzheimer's disease Paternal Grandfather Grandpa Relation Name Status Comments Brother Alive Father Sincere Alive Father's Brother 1 Martin Father's Brother 2 Uncle Martin Maternal Grandmother Grandma Mother Deandre Alive Paternal Grandfather Grandpa Social History Tobacco Use Types Packs/Day Years [...] on file Legal Sex Male 10:45 PM COMMISSIONING SPECIALIST Gender Identity Not on file Sexual Orientation Not on file Obstetrics History Last Filed Vital Signs Vital Sign Reading Time Taken Comments Blood Pressure 124/80 08/01/2024 3:54 PM COMMISSIONING SPECIALIST Pulse 87 08/01/2024 3:54 PM COMMISSIONING SPECIALIST Temperature 36.5 C (97.7 F) 08/01/2024 3:54 PM COMMISSIONING SPECIALIST Respiratory Rate 16 07/29/2024 12:30 AM COMMISSIONING SPECIALIST Oxygen Saturation 99% 08/01/2024 3:54 PM COMMISSIONING SPECIALIST Inhaled Oxygen Concentration - - Weight 112.9 kg (249 lb) 08/01/2024 3:54 PM COMMISSIONING SPECIALIST Height 172.7 cm (5' 8 ) 08/01/2024 3:54 PM COMMISSIONING SPECIALIST Body Mass Index 37.86 08/01/2024 3:54 PM COMMISSIONING SPECIALIST Plan of Treatment Health Maintenance Due Date Last Done Comments Pneumococcal vaccine <65 (1 of 2 - PCV) 1985 DTaP/Tdap/Td Vaccine (5 - Tdap) 03/22/1993 03/21/1993, 06/30/1984, 06/30/1980, Additional history exists Hepatitis B Screening 1997 Regular Well Visit/Exam 18-64 01/02/2025 01/03/2024 Depression Screening 08/01/2025 08/01/2024, 07/05/2024, 01/03/2024, Additional history exists Colon Cancer Screening-Colonoscopy 01/30/2033 01/30/2023 Hepatitis C Screening Completed 01/03/2024 Influenza Vaccine Completed 06/02/2024, , 07/05/2022 Covid-19 Vaccine Completed 06/03/2024, , 07/05/2022, Additional history exists HPV Vaccines Aged Out No longer eligi ble based on patient's age to complete this topic Procedures Procedure Name Priority Date/Time Associated Diagnosis Comments URINALYSIS, MICROSCOPIC ONLY Routine 08/14/2024 9:15 PM COMMISSIONING SPECIALIST Hematuria, unspecified type URINALYSIS AND REFLEX TO MICROSCOPIC AND CULTURE Routine 08/14/2024 9:15 PM COMMISSIONING SPECIALIST Hematuria, unspecified type POCT URINALYSIS DIPSTICK Routine 08/01/2024 4:21 PM COMMISSIONING SPECIALIST Hematuria, unspecified type URINE CULTURE Routine 08/01/2024 4:20 PM COMMISSIONING SPECIALIST Hematuria, unspecified type CT ABDOMEN PELVIS WO CONTRAST ED 07/28/2024 10:31 PM COMMISSIONING SPECIALIST URINALYSIS, MICROSCOPIC ONLY STAT 07/28/2024 7:15 PM COMMISSIONING SPECIALIST URINALYSIS AND REFLEX TO MICROSCOPIC AND CULTURE STAT 07/28/2024 7:15 PM COMMISSIONING SPECIALIST EGFR STAT 07/28/2024 5:58 PM COMMISSIONING SPECIALIST DIFFERENTIAL AUTO STAT 07/28/2024 5:5 8 PM COMMISSIONING SPECIALIST LIPASE STAT 07/28/2024 5:58 PM COMMISSIONING SPECIALIST COMPREHENSIVE METABOLIC PANEL STAT 07/28/2024 5:58 PM COMMISSIONING SPECIALIST CBC WITH AUTO DIFFERENTIAL STAT 07/28/2024 5:58 PM COMMISSIONING SPECIALIST EGFR Routine 07/05/2024 4:08 PM COMMISSIONING SPECIALIST Primary hypertension DIFFERENTIAL AUTO Routine 07/05/2024 4:0 8 PM COMMISSIONING SPECIALIST Primary hypertension CBC WITH AUTO DIFFERENTIAL Routine 07/05/2024 4:08 PM COMMISSIONING SPECIALIST Primary hypertension COMPREHENSIVE METABOLIC PANEL Routine 07/05/2024 4:08 PM COMMISSIONING SPECIALIST Primary hypertension HEMOGLOBIN A1C Routine 07/05/2024 4:08 PM COMMISSIONING SPECIALIST Impaired fasting glucose LIPID PANEL Routine 07/05/2024 4:08 PM COMMISSIONING SPECIALIST Primary hypertension THYROID FUNCTION CASCADE Routine 07/05/2024 4:08 PM COMMISSIONING SPECIALIST Primary hypertension HEPATITIS C ANTIBODY Routine 01/03/2024 8:29 AM CDT Encounter for hepatitis C screening test for low risk patient HM COLONOSCOPY Routine 01/30/2023 2:34 PM CDT from Last 3 Months or Most Recently Relevant to Health Maintenance Results * (ABNORMAL) Urinalysis reflex to microscopic and culture Urine, bladder (08/14/2024 9:15 PM COMMISSIONING SPECIALIST) Color, ur Yellow Yellow Clarity, ur Clear [...] for uric acid stone formation. Source: [facility] [employer] Current Interpretive Data was last revised on [...] to microscopic UA will be performed. CERNER Urine, bladder 08/14/2024 9: 15 PM COMMISSIONING SPECIALIST 08/15/2024 11:42 AM COMMISSIONING SPECIALIST Tanya Vivas NP LAB MICROBIOLOGY - GENERAL ORDER BRANDIE Final Result [facility] [address] Department [place] [address] * (ABNORMAL) Urinalysis, microscopic only (08/14/2024 9:15 PM COMMISSIONING SPECIALIST) WBC, ur 0-5 0 - 5 /HPF RBC, ur 6-10(A) 0 - 2 /HPF CERNER CH Mucous, ur Present(A) CERNER CH Culture Reflex Comment Reflex conditions for urine culture (WBC >10) not met. CERNER Urine, bladder 08/14/2024 9: 15 PM COMMISSIONING SPECIALIST 08/15/2024 11:42 AM COMMISSIONING SPECIALIST us Tanya Vivas NP LAB URINE ORDERABLES Final Resul t [facility] [address] Department [place] [address] * (ABNORMAL) POCT urinalysis dipstick (08/01/2024 4:21 PM COMMISSIONING SPECIALIST) Glucose, ur, POC Negative Negative MG/DL Bilirubin, ur, POC Negative Negative, Small, Moderate, Large Ketones, ur, POC Negative Negative Specific Bennet, POC 1.025 1.003 - 1.030 Blood, ur, POC Moderate(A) Negative pH, ur, POC 5.5 5.0 - 8.0 Protein, ur, POC Negative Negative Urobilinogen, urine, POC 0.2 0.2 - 1.0 mg/dL Nitrite, ur, POC Negative Negative Leukocytes, ur, POC Negative Negative Lot Number [id number] Urine 08/01/2024 4:21 PM COMMISSIONING SPECIALIST us Tanya Vivas NP POINT OF CARE TEST ORDERABLES Fi nal Result * Urine culture Urine, bladder (08/01/2024 4:20 PM COMMISSIONING SPECIALIST) Report Final Report: No growth Comment:Testing performed by : [facility], [address] [place]., [address] Urine, bladder 08/01/2024 4: 20 PM COMMISSIONING SPECIALIST 08/01/2024 10:08 PM COMMISSIONING SPECIALIST Narrative PROMISE MADDEN - 08/03/2024 7:55 AM COMMISSIONING SPECIALIST Testing performed by [facility] Microbiology Laboratory ([phone]) us Tanya Vivas NP LAB MICROBIOLOGY - GENERAL ORDER BRANDIE Final Result [facility] [address] Department [place] [address] * CT Abdomen Pelvis WO Contrast (07/28/2024 10:31 PM COMMISSIONING SPECIALIST) Anatomical Region Laterality Modality Body N/A Computed Tomogra phy 07/29/2024 9:38 AM COMMISSIONING SPECIALIST Impressions 07/29/2024 9:38 AM COMMISSIONING SPECIALIST Acute, uncomplicated sigmoid diverticulitis. Electronically signed by: Guillermo Keith M.D. Narrative 07/29/2024 9:38 AM COMMISSIONING SPECIALIST EXAMINATION: CT ABDOMEN PELVIS WO CONTRAST HISTORY: [...] diverticulitis. Electronically signed by: Guillermo Keith M.D. us Sammie Walls MD IMG CT PROCEDURES Final R esult * (ABNORMAL) Urinalysis reflex to microscopic and culture Urine (07/28/2024 7:15 PM COMMISSIONING SPECIALIST) Color, ur Yellow Yellow Clarity, ur Clear [...] for uric acid stone formation. Source: [facility] [employer] Current Interpretive Data was last revised on [...] to microscopic UA will be performed. CERNER [facility] Urine 07/28/2024 7:15 PM COMMISSIONING SPECIALIST 07/28/2024 7:21 PM COMMISSIONING SPECIALIST Sammie Walls MD LAB MICROBIOLOGY - GENERA L ORDERABLES Final Result [facility] [address] [facility]. Department of [employer] [place] [address] * (ABNORMAL) Urinalysis, microscopic only (07/28/2024 7:15 PM COMMISSIONING SPECIALIST) WBC, ur 0-5 0 - 5 /HPF RBC, ur 6-10(A) 0 - 2 /HPF CERNER [facility] Epithelial cells, squamous, ur 1-5 0 - 5 /HPF CERNER [facility] Mucous, ur Present(A) CERCONNIE [facility] Culture Reflex Comment Reflex conditions for urine culture (WBC >10) not met. [facility] Urine 07/28/2024 7:15 PM COMMISSIONING SPECIALIST 07/28/2024 7:21 PM COMMISSIONING SPECIALIST Sammie Walls MD LAB URINE ORDERABLES Katia l Result Performing Organization Address [facility] Co de Phone Number PROMISE [facility] [address] [employer] [place] [address] * eGFR (07/28/2024 5:58 PM COMMISSIONING SPECIALIST) Pathologist [facility] eGFR 74 >=60 mL/min/1. 73 m2 Comment: [...] last reviewed 2021. Blood 07/28/2024 5:58 PM COMMISSIONING SPECIALIST 07/28/2024 6:02 PM COMMISSIONING SPECIALIST Sammie Walls MD LAB BLOOD ORDERABLES Katia l Result Performing Organization Address City/[facility]/ZIP Co de Phone Number [facility]OMISE LOGANCH [address] [employer]. [facility] [place] [employer] [place] [address] * Differential, auto (07/28/2024 5:58 PM COMMISSIONING SPECIALIST) Neutrophil abs 4.5 1.5 - 6.5 K/cumm Imm gran abs 0.0 0.0 - 0.1 K/cumm CERNER [facility] Lymphocyte abs 1.5 0.8 - 3.3 K/cumm [facility] Monocyte abs 0.5 0.2 - 0.8 K/cumm CERNER [facility] Eosinophil abs 0.2 0.0 - 0.5 K/cumm CERNER [facility] Basophil abs 0.1 0.0 - 0.1 K/cumm CERNER [facility] Neutrophil pct 66.1 % [facility] Comment: Interpretive Data Percent cell count reference ranges are not reported, since discordance with absolute values may lead to misinterpretation of CBC data. Current Interpretive Data was last revised on 2017. Imm gran pct 0.3 % [facility] Comment: Interpretive Data Percent cell count reference ranges are not reported, since discordance with absolute values may lead to misinterpretation of CBC data. Current Interpretive Data was last revised on 2017. Lymphocyte pct 22.7 % [facility] Comment: Interpretive Data Percent cell count reference ranges are not reported, since discordance with absolute values may lead to misinterpretation of CBC data. Current Interpretive Data was last revised on 2017. Monocyte pct 7.4 % [facility] Comment: Interpretive Data Percent cell count reference ranges are not reported, since discordance with absolute values may lead to misinterpretation of CBC data. Current Interpretive Data was last revised on 2017. Eosinophil pct 2.8 % [facility] Comment: Interpretive Data Percent cell count reference ranges are not reported, since discordance with absolute values may lead to misinterpretation of CBC data. Current Interpretive Data was last revised on 2017. Basophil pct 0.7 % [facility] Comment: Interpretive Data Percent cell count reference ranges are not reported, since discordance with absolute values may lead to misinterpretation of CBC data. Current Interpretive Data was last revised on 2017. Blood 07/28/2024 5:58 PM COMMISSIONING SPECIALIST 07/28/2024 6:02 PM COMMISSIONING SPECIALIST Sammie Walls MD LAB BLOOD ORDERABLES Katia l Result Performing Organization Address [facility] Co de Phone Number PROMISE GARDNER [address] [address] [employer] [facility] [employer] [place], [place] [id number] * (ABNORMAL) CBC with auto differential (07/28/2024 5:58 PM COMMISSIONING SPECIALIST) WBC 6.8 3.8 - 9.9 K/cumm Hgb 14.1 13.0 - 17.5 g/dL [facility] Hct 41.7 38.9 - 50.3 % [facility] Plt 347 150 - 400 K/cumm [facility] W MPV 8.4(L) 9.1 - 12.3 fL [facility] RBC 4.60 4.30 - 5.80 M/cumm [facility] MCV 90.7 81.3 - 96.4 fL [facility] MCH 30.7 27.1 - 33.3 pg [facility] MCHC 33.8 32.3 - 35.7 g/dL [facility] RDW CV 12.1 11.1 - 14.9 % [facility] RDW SD 40.2 35.7 - 48.1 fL [facility] NRBC abs 0.00 0.00 - 0.01 K/cumm [facility] Blood (Blood, Venous) 07/28/2024 5:58 PM COMMISSIONING SPECIALIST 07/28/2024 6:02 PM COMMISSIONING SPECIALIST Sammie Walls MD LAB BLOOD ORDERABLES Katia l Result Performing Organization Address [facility]/ZIP Co de Phone Number [facility]OMISE PRATHER [address] [address] [facility]. [facility] [employer] [place], [place] [id number] * Lipase (07/28/2024 5:58 PM COMMISSIONING SPECIALIST) Lipase 21 10 - 99 Units/L Blood (Blood, Venous) 07/28/2024 5:58 PM COMMISSIONING SPECIALIST 07/28/2024 6:02 PM COMMISSIONING SPECIALIST Sammie Walls MD LAB BLOOD ORDERABLES Katia tafoya Result [facility] [address] [facility]. Department [place] [address] * Comprehensive metabolic panel (07/28/2024 5:58 PM COMMISSIONING SPECIALIST) Sodium 138 135 - 145 mmol/L Potassium, pl 3.6 3.3 - 4.9 mmol/L [facility] Chloride 102 97 - 110 mmol/L [facility] CO2 25 22 - 32 mmol/L [facility] Anion gap 11 2 - 15 mmol/L [facility] BUN 18 6 - 25 mg/dL [facility] Creatinine 1.23 0.80 - 1.30 mg/dL [facility] Glucose 101 70 - 199 mg/dL [facility] Comment: Interpretive Data Fasting glucose >/= 126 [...] 2022. Calcium 9.4 8.5 - 10.3 mg/dL [facility] Bilirubin, total 0.4 0.1 - 1.2 mg/dL [facility] Protein, pl 7.2 6.5 - 8.5 g/dL [facility] Albumin 3.9 3.5 - 5.0 g/dL [facility] Alk phos 46 40 - 130 Units/L [facility] ALT 25 7 - 55 Units/L [facility] AST 20 10 - 50 Units/L [facility] Blood 07/28/2024 5:58 PM COMMISSIONING SPECIALIST 07/28/2024 6:02 PM COMMISSIONING SPECIALIST Sammie Walls MD LAB BLOOD ORDERABLES Katia l Result [facility] [address] Department [place] [address] * (ABNORMAL) eGFR (07/05/2024 4:08 PM COMMISSIONING SPECIALIST) eGFR 43(L) >=60 mL/min/1. 73 m2 Comment: [...] last reviewed 2021. Blood 07/05/2024 4:08 PM COMMISSIONING SPECIALIST 07/05/2024 7:32 PM COMMISSIONING SPECIALIST Tanya Vivas NP LAB BLOOD ORDERABLES Final Resul t Performing Organization Address City/[facility]/ZIP Co de Phone Number PROMISE MADDEN [address] Department [place] [address] * (ABNORMAL) Differential, auto (07/05/2024 4:08 PM COMMISSIONING SPECIALIST) Neutrophil abs 5.6 1.5 - 6.5 K/cumm Imm gran abs 0.0 0.0 - 0.1 K/cumm CERNER Lymphocyte abs 1.9 0.8 - 3.3 K/cumm CERNER Monocyte abs 0.9(H) 0.2 - 0.8 K/cumm [facility] Eosinophil abs 0.2 0.0 - 0.5 K/cumm [facility] Basophil abs 0.1 0.0 - 0.1 K/cumm [facility] Neutrophil pct 64.0 % [facility] Comment: Interpretive Data Percent cell count reference ranges are not reported, since discordance with absolute values may lead to misinterpretation of CBC data. Current Interpretive Data was last revised on 2017. Imm gran pct 0.3 % [facility] Comment: Interpretive Data Percent cell count reference ranges are not reported, since discordance with absolute values may lead to misinterpretation of CBC data. Current Interpretive Data was last revised on 2017. Lymphocyte pct 22.1 % [facility] Comment: Interpretive Data Percent cell count reference ranges are not reported, since discordance with absolute values may lead to misinterpretation of CBC data. Current Interpretive Data was last revised on 2017. Monocyte pct 10.2 % [facility] Comment: Interpretive Data Percent cell count reference ranges are not reported, since discordance with absolute values may lead to misinterpretation of CBC data. Current Interpretive Data was last revised on 2017. Eosinophil pct 2.5 % [facility] Comment: Interpretive Data Percent cell count reference ranges are not reported, since discordance with absolute values may lead to misinterpretation of CBC data. Current Interpretive Data was last revised on 2017. Basophil pct 0.9 % [facility] Comment: Interpretive Data Percent cell count reference ranges are not reported, since discordance with absolute values may lead to misinterpretation of CBC data. Current Interpretive Data was last revised on 2017. Blood 07/05/2024 4:08 PM COMMISSIONING SPECIALIST 07/05/2024 7:30 PM COMMISSIONING SPECIALIST us Tanya Vivas NP LAB BLOOD ORDERABLES Final Resul t [facility] [address] Department [place] [address] * Thyroid Function [place] (07/05/2024 4:08 PM COMMISSIONING SPECIALIST) TSH 1.13 0.30 - 4.20 mcIUnit/mL Blood 07/05/2024 4:08 PM COMMISSIONING SPECIALIST 07/05/2024 7:30 PM COMMISSIONING SPECIALIST Tanya Vivas MINIATURE MODEL MAKER LAB BLOOD ORDERABLES Final Resul t Performing Organization Address [facility] Co de Phone Number [facility] [address] Department of [employer] [place] [address] * (ABNORMAL) CBC with auto differential (07/05/2024 4:08 PM COMMISSIONING SPECIALIST) WBC 8.8 3.8 - 9.9 K/cumm Hgb 13.6 13.0 - 17.5 g/dL [facility] Hct 42.2 38.9 - 50.3 % [facility] Plt 378 150 - 400 K/cumm [facility] MPV 9.0(L) 9.1 - 12.3 fL [facility] RBC 4.52 4.30 - 5.80 M/cumm [facility] MCV 93.4 81.3 - 96.4 fL [facility] MCH 30.1 27.1 - 33.3 pg [facility] MCHC 32.2(L) 32.3 - 35.7 g/dL [facility] RDW CV 12.8 11.1 - 14.9 % [facility] RDW SD 43.8 35.7 - 48.1 fL [facility] NRBC abs 0.00 0.00 - 0.01 K/cumm [facility] Blood 07/05/2024 4:08 PM COMMISSIONING SPECIALIST 07/05/2024 7:30 PM COMMISSIONING SPECIALIST us Tanya Vivas NP LAB BLOOD ORDERABLES Final Resul t Performing Organization Address City/[facility] Co de Phone Number [facility]OM[facility] MADDEN [address] Department of [employer] [place] [address] * (ABNORMAL) Hemoglobin A1c (07/05/2024 4:08 PM COMMISSIONING SPECIALIST) Hgb A1C 5.7(H) 4.0 - 5.6 % Estimated Average Glucose 117 mg/dL [facility] Comment: The ADA recommends reporting an estimated Average Glucose (eAG) with all Hemoglobin A1c results using the equation derived from a study of 507 normal and diabetic adults. Minority populations were underrepresented and children were not included. (Diabetes Care 31:9075-3704, 2008). The eAG is not equivalent to a fasting glucose. Blood 07/05/2024 4:08 PM COMMISSIONING SPECIALIST 07/05/2024 7:30 PM COMMISSIONING SPECIALIST us Tanya Vivas MINIATURE MODEL MAKER LAB BLOOD ORDERABLES Final Resul t [facility] [address] Department [place] [address] * (ABNORMAL) Lipid panel (07/05/2024 4:08 PM COMMISSIONING SPECIALIST) Cholesterol 162 30 - 199 mg/dL Comment: [...] on 2018. HDL 38(L) >=40 mg/dL [facility] Comment: Interpretive Data Ages [...] 2018. LDL, calculated 101 <=129 mg/dL [facility] Comment: Interpretive Data Ages [...] NCEP Expert Panel. Circulation 2004;110:227 3. Drew M et al. AFSANEH Cardiol. 2019December 14;5(5):540-548. doi: [email or web address] Current Interpretive Data was last revised on 2024. Non-HDL Cholesterol 124 mg/dL PROMISE MADDEN Comment: Interpretive Data Ages [...] last revised on 2018. Chol/HDL ratio 4 PROMISE Blood 07/05/2024 4:08 PM COMMISSIONING SPECIALIST 07/05/2024 7:30 PM COMMISSIONING SPECIALIST Tanya Vivas NP LAB [place]LOOD [place] [address] [address] Department [place] [address] * (ABNORMAL) Comprehensive metabolic panel (07/05/2024 4:08 PM COMMISSIONING SPECIALIST) Sodium 138 135 - 145 mmol/L Potassium, [...] Units/L [facility] Blood 07/05/2024 4:08 PM COMMISSIONING SPECIALIST 07/05/2024 7:30 PM COMMISSIONING SPECIALIST us Tanya Vivas MINIATURE MODEL MAKER LAB BLOOD ORDERABLES Final Resul t Performing Organization Address [facility] [place] [address] [address]imitri Department [place] [address] * Hepatitis C antibody Blood (01/03/2024 8:29 [...] 8:29 AM CDT 01/03/2024 6:43 PM CDT Tanya Vivas NP LAB MICROBIOLOGY - GENERAL ORDER BRANDIE Final Result Performing Organization Address [facility] [place] [address] [address]ri Department [place] [address] * HM COLONOSCOPY (01/30/2023 2:34 PM CDT) Matty Colón MD HEALTH MAINTENANCE Final Resu lt from Last 3 Months or Most Recently Relevant to Health Maintenance Insurance [facility] CHO[facility] [employer] [facility] H[facility]/PPO Address: [facility] [address] [place] [address] [facility] CHO[employer] PLUS [facility] H[facility]/PPO Address: [facility] [id number] [place], [place] [id number] Care Teams Insurance Loss Assessor Relationship Specialty Start Date End Date Tanya Vivas NP [address] [facility] [facility] [address] [place] [address] PCP - General Family Medicine 06/21/23
--- OUTSIDE RECORDS SUMMARY | 2024-09-25 13:48 | XMS_ITS | Patient Health Summary ---
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 This disclosure is being madepursuant to the Care Everywhere program and may not contain all information available regarding this patient. Last updated 18.[facility] [employer] Allergies No known active allergies Medications Be [...]
[2024-09-25 14:12] LABS: EDCOVIDSCREEN Negative (Negative); EDINFLUASCREEN Negative (Negative); EDINFLUBSCREEN Negative (Negative)
--- NOTE | 2024-09-25 14:16 | ED_ITS ---
HPI - URI/Sore Throat General Chief Complaint: Upper Respiratory Infection Stated Complaint: cold Time Seen by Provider: 09/25/24 14:16 Source: patient Mode of arrival: ambulatory Limitations: no limitations History of Present Illness HPI Narrative: 44-year-old male presents with complaint of nausea, vomiting, diarrhea, fatigue, fever and chills for 3 days. Past had diarrhea approximately 48 hours ago. Vomited once this morning. Is able to keep down water. States his told him he probably has a norovirus. All systems reviewed and negative except as noted above. Related Data Allergies Allergy/AdvReac Type Severity Reaction Status Date / Time No Known Allergies Allergy Verified 09/25/24 13:50 Review of Systems Review of Systems: CONSTITUTIONAL: Denies fever, chills, or sweats. reports fatigue. EYES: Denies visual changes, redness, or discharge. ENT: Denies rhinorrhea, congestion, sore throat, or otalgia. CARDIOVASCULAR: Denies chest pain, palpitations, or edema. RESPIRATORY: Denies cough or dyspnea. GASTROINTESTINAL: Denies abdominal pain . Reports nausea, vomiting, or diarrhea. GENITOURINARY: Denies dysuria or hematuria. SKIN: Denies rash or itching. MUSCULOSKELETAL: Denies back pain, joint pain, or myalgia. NEUROLOGIC: Denies headache, numbness, or weakness. PSYCHIATRIC: Denies anxiety or depression. All other systems reviewed are negative, except as documented in HPI. PMFSH Comments At time of signature, agree with nursing past medical, surgical, social and family history. There is no relevant family history pertinent to the presenting complaint. Exam Narrative: GENERAL: This is a well-nourished, well-developed patient, Ill-appearing but in no acute distress HEAD: normocephalic, atraumatic. EYES: PERRL. Sclera clear/white. Vision is grossly intact. EARS: External ears normal, auditory canals clear and without drainage, TMs normal without perforation. Hearing grossly intact. NOSE: External nose normal with no obvious nasal discharge, nares without redness, no rhinorrhea. THROAT: Mucous membranes moist, posterior pharynx clear. NECK: Neck supple, non-tender without lymphadenopathy, masses or thyromegaly. CARDIOVASCULAR: Regular rate and rhythm without murmurs, gallops, or rubs. RESPIRATORY: Clear to auscultation. Breath sounds equal bilaterally. No wheezes, rales, or rhonchi. GASTROINTESTINAL: Abdomen soft, non-tender, nondistended. Bowel sounds are active. No hepato-splenomegaly, or palpable masses. No guarding. SKIN: warm, Dry, intact with no suspicious lesions or rash, good texture and turgor. NEURO: awake, alert, and oriented to person, place and time. There were no obvious focal neurologic abnormalities. EXTREMITIES: No joint tenderness, effusion, or edema noted. Course Course Level of Care: Express Care Visit Vital Signs Vital signs: Vital Signs Temperature 36.6 C 09/25/24 13:45 Pulse Rate 98 09/25/24 13:45 Respiratory Rate 18 09/25/24 13:45 Blood Pressure 155/101 H 09/25/24 13:45 Pulse Oximetry 98 09/25/24 13:45 Oxygen Delivery Room Air 09/25/24 13:45 Temperature 36.6 C 09/25/24 13:45 Pulse Rate 98 09/25/24 13:45 Respiratory Rate 18 09/25/24 13:45 Blood Pressure 155/101 H 09/25/24 13:45 Pulse Oximetry 98 09/25/24 13:45 Oxygen Delivery Room Air 09/25/24 13:45 reviewed MDM - URI/Sore Throat MDM Narrative Medical decision making narrative: negative COVID, influenza test. Patient is alert, nontoxic. Patient has Zofran at home prescribed by primary care physician. Has not had to use it. Recommend he continue [id number] medications to treat viral symptoms. , hydrate. Please be advised this is a medical document. It is intended for qvor-bg-ulty communication. It is written in medical language and may contain unfamiliar abbreviations or verbiage. Medical documents are intended to carry relevant information, facts as evident, and the clinical opinion of the practitioner at the time of the encounter. This report may have been done utilizing a voice recognition system. Attempts have been made to correct errors. However, there may be uncorrected grammatical, spelling, and recognition errors present. The file time of this note does not necessarily represent the time of service. Lab Data Labs: Lab Results 09/25/24 Range/Units 14:10 POC Influenza A Ag Negative (Negative) POC Influenza B Ag Negative (Negative) POC SARS CoV-2 Ag Negative (Negative) Discharge Plan Discharge Clinical Impression: Viral gastroenteritis Patient Disposition: Home, Self-Care Condition: Stable Instructions: Gastroenteritis (ED) Additional Instructions: your COVID and influenza test was negative today. Your symptoms are viral and may last 7-10 days. Take ibuprofen or Tylenol every 6-8 hours as needed for pain and fever. Drink plenty of fluids and rest. Follow-up with your primary care physician if symptoms are not improving. Patient Language: Wolof Prescriptions: Discontinued ondansetron 4 mg tablet,disintegrating 4 mg PO Q6H PRN (Reason: nausea and vomiting) Qty: 30 0RF No Action loratadine [Claritin] 10 mg tablet 10 mg PO DAILY 5 Days Qty: 5 0RF fluticasone propionate [Flonase Allergy Relief] 50 mcg/actuation spray,suspension 1 spray intranasal Q12H Qty: 16 0RF Rx Instructions: administer into each nostril benzonatate 200 mg capsule 200 mg PO BID PRN (Reason: cough) Qty: 30 0RF guaifenesin 400 mg tablet 400 mg PO Q4H PRN (Reason: congestion) Qty: 30 0RF Follow-up/Referrals: Ortega,Tanya Rascon, [facility] [Primary Care Provider] - Stand Alone Forms: Work/School Release IP Time of Disposition: 14:28
== END 2024-09-25 14:34 | disposition home or self-care (01) ==
PROVIDERS: Emergency Provider Nurse Practitioner Family; PCP Nurse Practitioner Family
DX: A08.4 Viral intestinal infection, unspecified (principal); Z20.822 Contact with and (suspected) exposure to COVID-19
CPT/HCPCS: 87426; 87804; 99212; G0463

== ENCOUNTER 2024-10-16 14:56 | Outpatient (CLI) | payer OTHER, SELFPAY ==
[2024-10-16 15:22] LABS: Estimated Glomerular Filt Rate > 60
== END 2024-10-16 14:57 | disposition home or self-care (01) ==
PROVIDERS: PCP Nurse Practitioner Family; Visit Provider Urology
DX: R31.29 Other microscopic hematuria (principal); N28.1 Cyst of kidney, acquired; K57.30 Diverticulosis of large intestine without perforation or abscess without bleeding
CPT/HCPCS: 74178; Q9967